=== PATIENT | male | born 1950 | race Caucasian/White ===

== ENCOUNTER → 2019-09-02 | Outpatient (CLI) | payer OTHER | END | disposition home or self-care (01) | LOC: SHCH 13:49 | PROVIDERS: ATTEND Internal Medicine Cardiovascular Disease | DX: I65.23 Occlusion and stenosis of bilateral carotid arteries (principal) | CPT/HCPCS: 93880 ==

== ENCOUNTER 2021-04-04 15:36 | Inpatient (IN) | payer OTHER ==
[~2021-04-04] VITALS: Ht 182.9 cm; Wt 93.0 kg
[~2021-04-04 15:36] MED LIST: CARB1TAB42 PO; CEFD300C3 PO; CHOL2000 PO; CYAN500T9 PO; FLUD0.1T2 PO; MEMA5TAB PO; MIDO5TAB4 PO; RIVA20TA PO; ROPI1TAB13 PO; TRAZ-253 PO
[2021-04-04 15:48] VITALS: BP 114/75
[2021-04-04 15:58] LABS: BASOPHILS % (AUTO) 0.6 % (0.0-5.0); EOSINOPHILS % (AUTO) 0.8 % (0.0-8.0); HEMATOCRIT 40.5 % (42-54); LYMPHOCYTES % (AUTO) 8.7 % (21.0-51.0); MEAN CORPUSCULAR HEMOGLOBIN 30.9 pg (27.0-33.0); MEAN CORPUSCULAR HGB CONC 31.6 g/dL (32.0-36.0); MEAN CORPUSCULAR VOLUME 97.8 fL (79-99); MONOCYTES % (AUTO) 6.5 % (3.0-13.0); NEUTROPHILS % (AUTO) 82.7 % (40.0-77.0); PLATELET COUNT (AUTO) 210 K/uL (130-400); RED BLOOD CELL COUNT(AUTO) 4.14 MIL/uL (4.50-6.20); RED CELL DISTRIBUTION WIDTH 13.2 % (11.0-15.5); WHITE BLOOD COUNT (AUTO) 8.7 K/uL (4.8-10.8)
[2021-04-04 16:09] LABS: INR 1.07 (0.85-1.15); PROTHROMBIN TIME 11.6 SEC (9.6-11.6)
[2021-04-04 16:10] LABS: PARTIAL THROMBOPLASTIN TIME 27.2 SEC (26.3-35.5)
[2021-04-04 16:15] LABS: CARBON DIOXIDE 31 mmol/L (21-32); CHLORIDE 103 mmol/L (101-111); CREATININE 1.2 mg/dL (0.5-1.5); GLOMERULAR FILTR. RATE CALC 63 mL/min (>60); GLUCOSE,RANDOM 122 mg/dL (70-105); POTASSIUM 3.5 mmol/L (3.5-5.1); SODIUM SERUM 140 mmol/L (136-145); UREA NITROGEN, BLOOD 12 mg/dL (7-18)
[2021-04-04 16:18] LABS: B-TYPE NATRIURETIC PEPTIDE 78 pg/mL (0-100)
[2021-04-04 16:26] LABS: ALANINE AMINOTRANSFERASE 15 U/L (12-78); ALBUMIN 3.3 g/dL (3.5-5.0); ASPARTATE AMINOTRANSFERASE 18 U/L (10-37); BILIRUBIN,TOTAL 0.4 mg/dL (0.2-1.0); CREATINE KINASE, TOTAL 21 U/L (21-232); MYOGLOBIN 38 ng/mL (10-92); TOTAL PROTEIN, SERUM 7.5 g/dL (6.0-8.3); TROPONIN I < 0.04 ng/mL (0.00-0.06)
[2021-04-04 18:56] VITALS: BP 103/68
[2021-04-04] MEDS ORDERED: ONDANSETRON 4MG INJ IV PRN (19:30)
[2021-04-04 20:17] VITALS: BP 161/89
[2021-04-04 20:24] LABS: CHOLESTEROL 158 mg/dL (<200); CREATINE KINASE, TOTAL 19 U/L (21-232); HDL CHOLESTEROL 47 mg/dL (29-71); LDL DIRECT 101 mg/dL (0-99); MYOGLOBIN 38 ng/mL (10-92); THYROID STIMULATING HORMONE 48.22 uIU/mL (0.36-3.74); TRIGLYCERIDES 64 mg/dL (30-200); TROPONIN I < 0.04 ng/mL (0.00-0.06)
[2021-04-04] MEDS: FAMOTIDINE 20MG TAB PO SCH (21:11)
[2021-04-04] MEDS: 0.9%NACL 1000ML 1,000 ML IV SCH (21:33)
[2021-04-04] MEDS: CARBIDOPA/LEVODOPA ER 50-200 1 EACH TABLET.ER PO SCH (21:43)
[2021-04-04 22:10] VITALS: BP 160/89
[2021-04-04 23:27] LABS: APPEARANCE,URINE Clear (CLEAR); BILIRUBIN,URINE Negative (NEGATIVE); COLOR,URINE Yellow (YELLOW); GLUCOSE, URINE (UA) Negative (NEGATIVE); KETONES,URINE Negative (NEGATIVE); LEUKOCYTE ESTERASE ,URINE Negative (NEGATIVE); NITRATE,URINE Negative (NEGATIVE); OCCULT BLOOD,URINE Negative (NEGATIVE); PH,URINE 6.5 (5.0-8.0); PROTEIN,URINE Negative (NEGATIVE); UROBILINOGEN,URINE 0.2 mg/dL (0.2-1.0)
[2021-04-05] VITALS (8 sets, daily range): BP systolic 117–176; BP diastolic 64–99
[2021-04-05 01:26] LABS: CREATINE KINASE, TOTAL 22 U/L (21-232); MYOGLOBIN 44 ng/mL (10-92); TROPONIN I < 0.04 ng/mL (0.00-0.06)
[2021-04-05] MEDS: 0.9%NACL 1000ML 1,000 ML IV SCH (05:30)
[2021-04-05 07:21] LABS: BASOPHILS % (AUTO) 0.8 % (0.0-5.0); EOSINOPHILS % (AUTO) 1.8 % (0.0-8.0); HEMATOCRIT 37.2 % (42-54); LYMPHOCYTES % (AUTO) 16.2 % (21.0-51.0); MEAN CORPUSCULAR HEMOGLOBIN 31.2 pg (27.0-33.0); MEAN CORPUSCULAR HGB CONC 32.8 g/dL (32.0-36.0); MEAN CORPUSCULAR VOLUME 95.1 fL (79-99); MONOCYTES % (AUTO) 6.6 % (3.0-13.0); NEUTROPHILS % (AUTO) 74.1 % (40.0-77.0); PLATELET COUNT (AUTO) 188 K/uL (130-400); RED BLOOD CELL COUNT(AUTO) 3.91 MIL/uL (4.50-6.20); RED CELL DISTRIBUTION WIDTH 13.2 % (11.0-15.5); WHITE BLOOD COUNT (AUTO) 6.2 K/uL (4.8-10.8)
[2021-04-05 07:28] LABS: CREATININE 1.3 mg/dL (0.5-1.5); POTASSIUM 3.4 mmol/L (3.5-5.1)
[2021-04-05 07:42] LABS: CREATINE KINASE, TOTAL 27 U/L (21-232); MYOGLOBIN 60 ng/mL (10-92); TROPONIN I < 0.04 ng/mL (0.00-0.06)
[2021-04-05] MEDS ORDERED: RIVAROXABAN 2.5 MG TABLET PO SCH (09:00)
[2021-04-05] MEDS ORDERED: LEVOTHYROXINE 25 MCG TABLET PO SCH (09:00)
[2021-04-05] MEDS: FAMOTIDINE 20MG TAB PO SCH ×2 (09:33→20:18)
[2021-04-05] MEDS: CARBIDOPA/LEVODOPA ER 50-200 1 EACH TABLET.ER PO SCH ×4 (09:33→20:18)
[2021-04-05] MEDS: RIVAROXABAN 20 MG TABLET PO SCH (09:33)
[2021-04-05] MEDS: HYDRALAZINE 20MG/ML VIAL IV PRN (15:57)
[2021-04-05] MEDS: TRAZODONE HCL 50 MG TAB PO SCH (20:18)
[2021-04-06 03:54] VITALS: BP 111/78
[2021-04-06] MEDS: LEVOTHYROXINE 25 MCG TABLET PO SCH (05:47)
[2021-04-06 07:30] VITALS: BP 152/92
[2021-04-06] MEDS: CARBIDOPA/LEVODOPA ER 50-200 1 EACH TABLET.ER PO SCH ×4 (09:14→20:17)
[2021-04-06] MEDS: RIVAROXABAN 20 MG TABLET PO SCH (09:14)
[2021-04-06] MEDS: FAMOTIDINE 20MG TAB PO SCH ×2 (09:14→20:17)
[2021-04-06 10:07] LABS: MAGNESIUM 1.6 mg/dL (1.80-2.40); POTASSIUM 3.3 mmol/L (3.5-5.1)
[2021-04-06 11:15] VITALS: BP 162/96
[2021-04-06] MEDS: ROPINIROLE HCL 1 MG TABLET PO SCH ×2 (11:51→20:17)
[2021-04-06 15:02] VITALS: BP 127/74
[2021-04-06 20:01] VITALS: BP 152/92
[2021-04-06] MEDS: TRAZODONE HCL 50 MG TAB PO SCH (20:17)
[2021-04-06] MEDS ORDERED: ACETAMINOPHEN 325 MG TAB PO PRN (20:30)
[2021-04-06 23:31] VITALS: BP 153/89
[2021-04-07 03:12] VITALS: BP 155/88
[2021-04-07] MEDS ORDERED: POTASSIUM CHLORIDE 20MEQ/100ML 100 ML IV PRN (05:00)
[2021-04-07] MEDS ORDERED: POTASSIUM CHLORIDE 10% ELIXIR 20 MEQ/15 ML UDCUP PO PRN (05:00)
[2021-04-07 05:43] LABS: BASOPHILS % (AUTO) 0.8 % (0.0-5.0); EOSINOPHILS % (AUTO) 2.5 % (0.0-8.0); LYMPHOCYTES % (AUTO) 23.1 % (21.0-51.0); MEAN CORPUSCULAR HEMOGLOBIN 31.5 pg (27.0-33.0); MEAN CORPUSCULAR HGB CONC 33.1 g/dL (32.0-36.0); MEAN CORPUSCULAR VOLUME 95.2 fL (79-99); MONOCYTES % (AUTO) 8.9 % (3.0-13.0); NEUTROPHILS % (AUTO) 64.2 % (40.0-77.0); PLATELET COUNT (AUTO) 172 K/uL (130-400); RED BLOOD CELL COUNT(AUTO) 3.78 MIL/uL (4.50-6.20); RED CELL DISTRIBUTION WIDTH 13.1 % (11.0-15.5); WHITE BLOOD COUNT (AUTO) 6.4 K/uL (4.8-10.8)
[2021-04-07] MEDS: LEVOTHYROXINE 25 MCG TABLET PO SCH (05:46)
[2021-04-07 05:51] LABS: CREATININE 1.1 mg/dL (0.5-1.5); MAGNESIUM 1.6 mg/dL (1.80-2.40); POTASSIUM 3.4 mmol/L (3.5-5.1)
[2021-04-07] MEDS: MAGNESIUM 2GM PREMIX 50ML 50 ML IV SCH (06:16)
[2021-04-07] MEDS: KCL 20 MEQ ERTAB PO PRN (06:22)
[2021-04-07 08:00] VITALS: BP 156/94
[2021-04-07] MEDS ORDERED: LORAZEPAM 2 MG/ML 1 ML VIAL IVP SCH (08:30)
[2021-04-07] MEDS: CARBIDOPA/LEVODOPA ER 50-200 1 EACH TABLET.ER PO SCH ×4 (09:00→20:39)
[2021-04-07 12:00] VITALS: BP 151/75
[2021-04-07] MEDS: ROPINIROLE HCL 1 MG TABLET PO SCH ×2 (12:13→20:36)
[2021-04-07] MEDS: FAMOTIDINE 20MG TAB PO SCH ×2 (12:13→20:36)
[2021-04-07] MEDS: RIVAROXABAN 20 MG TABLET PO SCH (12:13)
[2021-04-07 16:00] VITALS: BP 142/75
[2021-04-07] MEDS: LUBIPROSTONE 24 MCG CAP PO SCH (17:47)
[2021-04-07 19:00] VITALS: BP 128/80
[2021-04-07] MEDS: TRAZODONE HCL 50 MG TAB PO SCH (20:39)
[2021-04-07 23:00] VITALS: BP 137/83
[2021-04-08 03:00] VITALS: BP 130/70
[2021-04-08 05:57] LABS: CREATININE 1.1 mg/dL (0.5-1.5); MAGNESIUM 1.7 mg/dL (1.80-2.40); POTASSIUM 3.5 mmol/L (3.5-5.1)
[2021-04-08] MEDS: LEVOTHYROXINE 25 MCG TABLET PO SCH (06:01)
[2021-04-08 07:00] VITALS: BP 111/74
[2021-04-08] MEDS: RIVAROXABAN 20 MG TABLET PO SCH (09:27)
[2021-04-08] MEDS: FAMOTIDINE 20MG TAB PO SCH ×2 (09:27→20:19)
[2021-04-08] MEDS: CARBIDOPA/LEVODOPA ER 50-200 1 EACH TABLET.ER PO SCH ×4 (09:27→20:19)
[2021-04-08] MEDS: ROPINIROLE HCL 1 MG TABLET PO SCH ×2 (09:27→20:19)
[2021-04-08] MEDS: LUBIPROSTONE 24 MCG CAP PO SCH ×2 (09:28→17:08)
[2021-04-08 11:00] VITALS: BP 110/67
[2021-04-08 15:00] VITALS: BP 107/60
[2021-04-08] MEDS: MIDODRINE HCL 5 MG TABLET PO SCH (17:10)
[2021-04-08 19:27] VITALS: BP 123/89
[2021-04-08] MEDS ORDERED: HYDROXYZINE 25 MG TABLET PO SCH (21:00)
[2021-04-09] VITALS (7 sets, daily range): BP systolic 126–153; BP diastolic 68–93
[2021-04-09] MEDS: LEVOTHYROXINE 25 MCG TABLET PO SCH (05:52)
[2021-04-09 06:38] LABS: MAGNESIUM 1.8 mg/dL (1.80-2.40); POTASSIUM 3.1 mmol/L (3.5-5.1)
[2021-04-09] MEDS: MIDODRINE HCL 5 MG TABLET PO SCH (08:36)
[2021-04-09] MEDS: FAMOTIDINE 20MG TAB PO SCH ×2 (08:47→21:43)
[2021-04-09] MEDS: CARBIDOPA/LEVODOPA ER 50-200 1 EACH TABLET.ER PO SCH ×4 (08:47→21:43)
[2021-04-09] MEDS: MEMANTINE HCL 5 MG TABLET PO SCH (08:47)
[2021-04-09] MEDS: ROPINIROLE HCL 1 MG TABLET PO SCH ×2 (08:47→21:43)
[2021-04-09] MEDS: LUBIPROSTONE 24 MCG CAP PO SCH ×2 (08:47→17:26)
[2021-04-09] MEDS: RIVAROXABAN 20 MG TABLET PO SCH (08:48)
[2021-04-09] MEDS: KCL 20 MEQ ERTAB PO PRN ×2 (08:48→14:00)
[2021-04-09 10:05] LABS: CREATININE 1.2 mg/dL (0.5-1.5); POTASSIUM 3.6 mmol/L (3.5-5.1)
[2021-04-09] MEDS ORDERED: POLYETHYLENE GLYCOL 3350 17 GM POWD.PACK PO ONE (17:00)
[2021-04-09] MEDS: FLUDROCORTISONE ACETATE 0.1 MG TABLET PO SCH (21:43)
[2021-04-10 03:56] VITALS: BP 133/70
[2021-04-10] MEDS: LEVOTHYROXINE 50 MCG TABLET PO SCH (06:02)
[2021-04-10 07:14] LABS: BASOPHILS % (AUTO) 0.5 % (0.0-5.0); EOSINOPHILS % (AUTO) 2.8 % (0.0-8.0); HEMATOCRIT 37.7 % (42-54); LYMPHOCYTES % (AUTO) 15.5 % (21.0-51.0); MEAN CORPUSCULAR HEMOGLOBIN 31.4 pg (27.0-33.0); MEAN CORPUSCULAR HGB CONC 32.4 g/dL (32.0-36.0); MEAN CORPUSCULAR VOLUME 97.2 fL (79-99); MONOCYTES % (AUTO) 9.1 % (3.0-13.0); NEUTROPHILS % (AUTO) 71.7 % (40.0-77.0); PLATELET COUNT (AUTO) 178 K/uL (130-400); RED BLOOD CELL COUNT(AUTO) 3.88 MIL/uL (4.50-6.20); RED CELL DISTRIBUTION WIDTH 13.4 % (11.0-15.5); WHITE BLOOD COUNT (AUTO) 7.5 K/uL (4.8-10.8)
[2021-04-10 07:44] VITALS: BP 120/63
[2021-04-10 07:46] LABS: CREATININE 1.1 mg/dL (0.5-1.5); MAGNESIUM 1.9 mg/dL (1.80-2.40); POTASSIUM 3.9 mmol/L (3.5-5.1)
[2021-04-10] MEDS ORDERED: RISPERIDONE 0.5 MG TABLET PO ONE (09:46)
[2021-04-10] MEDS ORDERED: ROPINIROLE HCL 0.25 MG TABLET ONE (09:52)
[2021-04-10] MEDS: MIDODRINE HCL 5 MG TABLET PO SCH (10:00)
[2021-04-10] MEDS: POLYETHYLENE GLYCOL 3350 17 GM POWD.PACK PO SCH (10:07)
[2021-04-10] MEDS: LUBIPROSTONE 24 MCG CAP PO SCH ×2 (10:07→16:57)
[2021-04-10] MEDS: ROPINIROLE HCL 0.25 MG TABLET PO SCH (10:08)
[2021-04-10] MEDS: CARBIDOPA/LEVODOPA ER 50-200 1 EACH TABLET.ER PO SCH ×4 (10:08→20:32)
[2021-04-10] MEDS: RIVAROXABAN 20 MG TABLET PO SCH (10:08)
[2021-04-10] MEDS: FAMOTIDINE 20MG TAB PO SCH ×2 (10:11→20:32)
[2021-04-10] MEDS: MEMANTINE HCL 5 MG TABLET PO SCH (10:11)
[2021-04-10 11:41] VITALS: BP 115/63
[2021-04-10] MEDS ORDERED: ROPI0.257 PO (13:10)
[2021-04-10] MEDS ORDERED: LEVO50TA4 PO (13:10)
[2021-04-10 15:13] VITALS: BP 145/85
[2021-04-10] MEDS: MAGNESIUM 2GM PREMIX 50ML 50 ML IV SCH (18:56)
[2021-04-10 20:00] VITALS: BP 144/86
[2021-04-10] MEDS: FLUDROCORTISONE ACETATE 0.1 MG TABLET PO SCH (20:32)
[2021-04-11] VITALS: BP 140/89
[2021-04-11 04:00] VITALS: BP 165/92
[2021-04-11] MEDS: LUBIPROSTONE 24 MCG CAP PO SCH ×2 (04:51→16:41)
[2021-04-11] MEDS: LEVOTHYROXINE 50 MCG TABLET PO SCH (04:51)
[2021-04-11] MEDS: MAGNESIUM 2GM PREMIX 50ML 50 ML IV SCH (04:51)
[2021-04-11] MEDS: HYDRALAZINE 20MG/ML VIAL IV PRN (05:01)
[2021-04-11 08:17] VITALS: BP 100/64
[2021-04-11] MEDS: MIDODRINE HCL 5 MG TABLET PO SCH (10:00)
[2021-04-11] MEDS: RIVAROXABAN 20 MG TABLET PO SCH (10:11)
[2021-04-11] MEDS: ROPINIROLE HCL 0.25 MG TABLET PO SCH (10:11)
[2021-04-11] MEDS: FAMOTIDINE 20MG TAB PO SCH (10:11)
[2021-04-11] MEDS: CARBIDOPA/LEVODOPA ER 50-200 1 EACH TABLET.ER PO SCH ×3 (10:11→16:41)
[2021-04-11] MEDS: MEMANTINE HCL 5 MG TABLET PO SCH (10:12)
[2021-04-11] MEDS: POLYETHYLENE GLYCOL 3350 17 GM POWD.PACK PO SCH (10:12)
[2021-04-11 11:22] VITALS: BP 119/56
[2021-04-11 16:37] VITALS: BP 149/83
[2021-04-11] MEDS ORDERED: TRAZODONE HCL 50 MG TAB PO SCH (21:00)
== END 2021-04-11 19:15 | DRG 312 ==
LOC: EDH 15:36 → OBSVTOIN 19:02 → EDHIP 19:02 → 4BH 22:33
PROVIDERS: ADMIT Internal Medicine; ATTEND Internal Medicine
DX: R55 Syncope and collapse (principal); G20 Parkinson's disease; I44.7 Left bundle-branch block, unspecified; F02.80 Dementia in other diseases classified elsewhere, unspecified severity, without behavioral disturbance, psychotic disturbance, mood disturbance, and anxiety; I10 Essential (primary) hypertension; E11.9 Type 2 diabetes mellitus without complications; E03.9 Hypothyroidism, unspecified; F39 Unspecified mood [affective] disorder; E78.00 Pure hypercholesterolemia, unspecified; E78.5 Hyperlipidemia, unspecified; F41.9 Anxiety disorder, unspecified; G31.9 Degenerative disease of nervous system, unspecified; I65.29 Occlusion and stenosis of unspecified carotid artery; J44.9 Chronic obstructive pulmonary disease, unspecified; K59.01 Slow transit constipation; R29.6 Repeated falls; Z79.899 Other long term (current) drug therapy; Z79.01 Long term (current) use of anticoagulants; Z86.711 Personal history of pulmonary embolism
CPT/HCPCS: 36415; 70450; 71045; 73521; 80048; 80053; 80061; 81003; 82533; 82550; 83735; 83874; 83880; 84443; 84484; 85025; 85610; 85730; 93005; 93880; 97039; G0378; J0360; J2060; J3475

== ENCOUNTER 2021-04-26 13:03 | Emergency (ER) | payer OTHER ==
[~2021-04-26] VITALS: Ht 182.9 cm; Wt 83.9 kg
[~2021-04-26 13:03] MED LIST changes: -CEFD300C3 PO; +LEVO50TA4 PO; +ROPI0.257 PO; -ROPI1TAB13 PO
[2021-04-26 13:20] VITALS: BP 123/73
[2021-04-26] MEDS ORDERED: LEVO112T4 PO (13:31)
[2021-04-26] MEDS ORDERED: ROPI1TAB13 PO (13:31)
[2021-04-26] MEDS ORDERED: TAMS-1 PO (13:31)
[2021-04-26 13:40] LABS: BASOPHILS % (AUTO) 0.6 % (0.0-5.0); EOSINOPHILS % (AUTO) 0.9 % (0.0-8.0); HEMATOCRIT 38.5 % (42-54); LYMPHOCYTES % (AUTO) 9.7 % (21.0-51.0); MEAN CORPUSCULAR HEMOGLOBIN 31.1 pg (27.0-33.0); MEAN CORPUSCULAR HGB CONC 31.9 g/dL (32.0-36.0); MEAN CORPUSCULAR VOLUME 97.2 fL (79-99); MONOCYTES % (AUTO) 8.8 % (3.0-13.0); NEUTROPHILS % (AUTO) 79.7 % (40.0-77.0); PLATELET COUNT (AUTO) 181 K/uL (130-400); RED BLOOD CELL COUNT(AUTO) 3.96 MIL/uL (4.50-6.20); RED CELL DISTRIBUTION WIDTH 12.8 % (11.0-15.5); WHITE BLOOD COUNT (AUTO) 6.7 K/uL (4.8-10.8)
[2021-04-26 13:49] LABS: CARBON DIOXIDE 31 mmol/L (21-32); CHLORIDE 104 mmol/L (101-111); CREATININE 1.1 mg/dL (0.5-1.5); GLOMERULAR FILTR. RATE CALC 70 mL/min (>60); GLUCOSE,RANDOM 123 mg/dL (70-105); POTASSIUM 3.4 mmol/L (3.5-5.1); SODIUM SERUM 142 mmol/L (136-145); UREA NITROGEN, BLOOD 20 mg/dL (7-18)
[2021-04-26 13:58] VITALS: BP 136/58
[2021-04-26 13:59] VITALS: BP 125/57
[2021-04-26 13:59] LABS: ALANINE AMINOTRANSFERASE 20 U/L (12-78); ALBUMIN 3.1 g/dL (3.5-5.0); ASPARTATE AMINOTRANSFERASE 16 U/L (10-37); BILIRUBIN,TOTAL 0.4 mg/dL (0.2-1.0); CREATINE KINASE, TOTAL 20 U/L (21-232); MYOGLOBIN 45 ng/mL (10-92); TOTAL PROTEIN, SERUM 7.3 g/dL (6.0-8.3); TROPONIN I < 0.04 ng/mL (0.00-0.06)
[2021-04-26 14:01] VITALS: BP 111/57
[2021-04-26 14:58] VITALS: BP 136/71
[2021-04-26 16:04] LABS: APPEARANCE,URINE Cloudy (CLEAR); BILIRUBIN,URINE Negative (NEGATIVE); COLOR,URINE Yellow (YELLOW); GLUCOSE, URINE (UA) Negative (NEGATIVE); KETONES,URINE Negative (NEGATIVE); LEUKOCYTE ESTERASE ,URINE Large (NEGATIVE); NITRATE,URINE Negative (NEGATIVE); OCCULT BLOOD,URINE Negative (NEGATIVE); PROTEIN,URINE POS 1+ mg/dL (NEGATIVE)
[2021-04-26 16:24] LABS: BACTERIA,URINE Many /HPF (None Seen); MUCUS,URINE Few LPF (None Seen); RBC,URINE 0-1 /HPF (0-1); SQUAMOUS EPITHELIAL CELL,UR 0-2 /HPF (0-2); WBC,URINE 26-50 /HPF (0-1)
[2021-04-26] MEDS ORDERED: MECL-226 PO (16:42)
[2021-04-26] MEDS ORDERED: CEPH500B PO (16:42)
[2021-04-26] MEDS ORDERED: CEFTRIAXONE 1G VIAL IVP ONE (17:00)
[2021-04-26 18:05] VITALS: BP 132/85
== END 2021-04-26 18:08 | disposition home or self-care (01) ==
LOC: EDH 13:03
DX: N39.0 Urinary tract infection, site not specified (principal); G20 Parkinson's disease; R42 Dizziness and giddiness; F02.80 Dementia in other diseases classified elsewhere, unspecified severity, without behavioral disturbance, psychotic disturbance, mood disturbance, and anxiety; E03.9 Hypothyroidism, unspecified; Z79.899 Other long term (current) drug therapy
CPT/HCPCS: 36415; 70450; 71045; 80053; 81001; 82550; 83874; 84484 ×2; 85025; 87077; 87088; 87186; 87426; 93005 ×3; 96374; 99285; J0696

== ENCOUNTER 2021-05-15 16:49 | Observation (INO) | payer OTHER ==
[~2021-05-15] VITALS: Ht 172.7 cm; Wt 81.9 kg
[~2021-05-15 16:49] MED LIST changes: +CEPH500B PO; -CHOL2000 PO; +LEVO112T4 PO; -LEVO50TA4 PO; +MECL-226 PO; -ROPI0.257 PO; +ROPI1TAB13 PO; +TAMS-1 PO; -TRAZ-253 PO
[2021-05-15 21:02] VITALS: BP 176/97
[2021-05-15 21:06] LABS: BASOPHILS % (AUTO) 0.5 % (0.0-5.0); EOSINOPHILS % (AUTO) 1.1 % (0.0-8.0); HEMATOCRIT 38.5 % (42-54); LYMPHOCYTES % (AUTO) 11.4 % (21.0-51.0); MEAN CORPUSCULAR HEMOGLOBIN 31.4 pg (27.0-33.0); MEAN CORPUSCULAR HGB CONC 33.2 g/dL (32.0-36.0); MEAN CORPUSCULAR VOLUME 94.6 fL (79-99); MONOCYTES % (AUTO) 7.1 % (3.0-13.0); NEUTROPHILS % (AUTO) 79.5 % (40.0-77.0); PLATELET COUNT (AUTO) 174 K/uL (130-400); RED BLOOD CELL COUNT(AUTO) 4.07 MIL/uL (4.50-6.20); RED CELL DISTRIBUTION WIDTH 13.2 % (11.0-15.5); WHITE BLOOD COUNT (AUTO) 7.6 K/uL (4.8-10.8)
[2021-05-15 21:09] LABS: APPEARANCE,URINE Clear (CLEAR); BILIRUBIN,URINE Negative (NEGATIVE); COLOR,URINE Yellow (YELLOW); GLUCOSE, URINE (UA) Negative (NEGATIVE); KETONES,URINE Negative (NEGATIVE); LEUKOCYTE ESTERASE ,URINE Trace (NEGATIVE); NITRATE,URINE Negative (NEGATIVE); OCCULT BLOOD,URINE Negative (NEGATIVE); PH,URINE 6.5 (5.0-8.0); PROTEIN,URINE Negative (NEGATIVE); UROBILINOGEN,URINE 0.2 mg/dL (0.2-1.0)
[2021-05-15 21:18] LABS: INR 1.02 (0.85-1.15); POTASSIUM 3.2 mmol/L (3.5-5.1); PROTHROMBIN TIME 11.1 SEC (9.6-11.6)
[2021-05-15 21:19] LABS: PARTIAL THROMBOPLASTIN TIME 26.8 SEC (26.3-35.5)
[2021-05-15 21:23] LABS: B-TYPE NATRIURETIC PEPTIDE 101 pg/mL (0-100); BACTERIA,URINE Few /HPF (None Seen); MUCUS,URINE Few LPF (None Seen); RBC,URINE 0-1 /HPF (0-1); SQUAMOUS EPITHELIAL CELL,UR Few /HPF (0-2)
[2021-05-15 21:24] LABS: ALBUMIN 3.3 g/dL (3.5-5.0); BILIRUBIN,TOTAL 0.6 mg/dL (0.2-1.0); TOTAL PROTEIN, SERUM 7.8 g/dL (6.0-8.3)
[2021-05-15 23:51] VITALS: BP 152/86
[2021-05-16] VITALS (9 sets, daily range): BP systolic 129–170; BP diastolic 73–87
[2021-05-16] MEDS ORDERED: POTASSIUM BICARB/CIT AC 25 MEQ TABLET.EFF PO ONE (02:00)
[2021-05-16] MEDS ORDERED: ACETAMINOPHEN 325 MG TAB PO PRN ×2 (03:00)
[2021-05-16] MEDS ORDERED: LACTULOSE 20 GM/30 ML UDCUP PO PRN (03:00)
[2021-05-16] MEDS ORDERED: ONDANSETRON 4MG INJ IV PRN (03:00)
[2021-05-16] MEDS: PANTOPRAZOLE 40 MG TAB DR PO SCH (10:12)
[2021-05-16] MEDS: MECLIZINE HCL 12.5 MG TABLET PO SCH ×2 (14:00→20:19)
[2021-05-16] MEDS ORDERED: FLUD0.1T2 PO (14:06)
[2021-05-16] MEDS ORDERED: CHOL2000 PO (14:06)
[2021-05-16] MEDS: CARBIDOPA/LEVODOPA ER 50-200 1 EACH TABLET.ER PO SCH ×2 (18:15→20:19)
[2021-05-16 18:16] LABS: CREATININE 0.9 mg/dL (0.5-1.5)
[2021-05-16 18:20] LABS: POTASSIUM 2.9 mmol/L (3.5-5.1)
[2021-05-16] MEDS: MIDODRINE HCL 5 MG TABLET PO SCH (20:15)
[2021-05-16] MEDS: ROPINIROLE HCL 1 MG TABLET PO SCH (20:19)
[2021-05-16] MEDS ORDERED: KCL 20 MEQ ERTAB PO PRN ×2 (22:00)
[2021-05-16] MEDS ORDERED: LIDOCAINE HCL-MPF 1% 2ML VIAL IV PRN ×2 (22:00)
[2021-05-16] MEDS ORDERED: POTASSIUM CHLORIDE 10% ELIXIR 20 MEQ/15 ML UDCUP PO PRN ×2 (22:00)
[2021-05-16] MEDS ORDERED: POTASSIUM CHLORIDE 10MEQ/100ML 100 ML IV PRN (22:00)
[2021-05-16] MEDS ORDERED: POTASSIUM CHLORIDE 20MEQ/100ML 100 ML IV PRN (22:00)
[2021-05-17] VITALS (7 sets, daily range): BP systolic 101–157; BP diastolic 58–104
[2021-05-17] MEDS: LEVOTHYROXINE 112 MCG TABLET PO SCH (06:20)
[2021-05-17 06:35] LABS: BASOPHILS % (AUTO) 0.8 % (0.0-5.0); EOSINOPHILS % (AUTO) 2.5 % (0.0-8.0); HEMATOCRIT 35.3 % (42-54); LYMPHOCYTES % (AUTO) 19.5 % (21.0-51.0); MEAN CORPUSCULAR HEMOGLOBIN 31.2 pg (27.0-33.0); MEAN CORPUSCULAR HGB CONC 32.6 g/dL (32.0-36.0); MEAN CORPUSCULAR VOLUME 95.7 fL (79-99); MONOCYTES % (AUTO) 11.2 % (3.0-13.0); NEUTROPHILS % (AUTO) 65.7 % (40.0-77.0); PLATELET COUNT (AUTO) 132 K/uL (130-400); RED BLOOD CELL COUNT(AUTO) 3.69 MIL/uL (4.50-6.20); WHITE BLOOD COUNT (AUTO) 6.5 K/uL (4.8-10.8)
[2021-05-17 06:50] LABS: CREATININE 0.7 mg/dL (0.5-1.5); POTASSIUM 4.1 mmol/L (3.5-5.1)
[2021-05-17] MEDS: TAMSULOSIN HCL 0.4 MG CAP.ER.24H PO SCH (09:00)
[2021-05-17] MEDS: PANTOPRAZOLE 40 MG TAB DR PO SCH (09:00)
[2021-05-17] MEDS: ROPINIROLE HCL 1 MG TABLET PO SCH ×2 (09:00→19:58)
[2021-05-17] MEDS: MEMANTINE HCL 5 MG TABLET PO SCH (09:00)
[2021-05-17] MEDS: MIDODRINE HCL 5 MG TABLET PO SCH ×3 (09:00→20:04)
[2021-05-17] MEDS: RIVAROXABAN 20 MG TABLET PO SCH (09:00)
[2021-05-17] MEDS: CARBIDOPA/LEVODOPA ER 50-200 1 EACH TABLET.ER PO SCH ×4 (09:00→21:00)
[2021-05-17] MEDS: CYANOCOBALAMIN (VITAMIN B-12) 1,000 MCG TABLET PO SCH (09:00)
[2021-05-17] MEDS: MECLIZINE HCL 12.5 MG TABLET PO SCH ×3 (09:00→19:59)
[2021-05-18 04:32] VITALS: BP 107/62
[2021-05-18] MEDS: LEVOTHYROXINE 112 MCG TABLET PO SCH (05:53)
[2021-05-18 06:38] LABS: BASOPHILS % (AUTO) 0.8 % (0.0-5.0); EOSINOPHILS % (AUTO) 2.4 % (0.0-8.0); LYMPHOCYTES % (AUTO) 19.7 % (21.0-51.0); MEAN CORPUSCULAR HEMOGLOBIN 30.9 pg (27.0-33.0); MEAN CORPUSCULAR HGB CONC 31.8 g/dL (32.0-36.0); MEAN CORPUSCULAR VOLUME 97.4 fL (79-99); MONOCYTES % (AUTO) 11.8 % (3.0-13.0); NEUTROPHILS % (AUTO) 64.6 % (40.0-77.0); PLATELET COUNT (AUTO) 140 K/uL (130-400); RED BLOOD CELL COUNT(AUTO) 3.49 MIL/uL (4.50-6.20); RED CELL DISTRIBUTION WIDTH 13.3 % (11.0-15.5); WHITE BLOOD COUNT (AUTO) 7.1 K/uL (4.8-10.8)
[2021-05-18 07:39] LABS: ALBUMIN 2.8 g/dL (3.5-5.0); ASPARTATE AMINOTRANSFERASE 15 U/L (10-37); BILIRUBIN,TOTAL 0.6 mg/dL (0.2-1.0); CARBON DIOXIDE 30 mmol/L (21-32); CHLORIDE 108 mmol/L (101-111); CREATININE 1.2 mg/dL (0.5-1.5); GLOMERULAR FILTR. RATE CALC 63 mL/min (>60); GLUCOSE,RANDOM 107 mg/dL (70-105); POTASSIUM 3.1 mmol/L (3.5-5.1); SODIUM SERUM 146 mmol/L (136-145); TOTAL PROTEIN, SERUM 6.4 g/dL (6.0-8.3); UREA NITROGEN, BLOOD 19 mg/dL (7-18)
[2021-05-18 08:00] VITALS: BP 127/87
[2021-05-18 08:43] LABS: ALANINE AMINOTRANSFERASE < 6 U/L (12-78)
[2021-05-18] MEDS: MEMANTINE HCL 5 MG TABLET PO SCH (09:12)
[2021-05-18] MEDS: CYANOCOBALAMIN (VITAMIN B-12) 1,000 MCG TABLET PO SCH (09:12)
[2021-05-18] MEDS: PANTOPRAZOLE 40 MG TAB DR PO SCH (09:12)
[2021-05-18] MEDS: ROPINIROLE HCL 1 MG TABLET PO SCH (09:12)
[2021-05-18] MEDS: MIDODRINE HCL 5 MG TABLET PO SCH (09:13)
[2021-05-18] MEDS: TAMSULOSIN HCL 0.4 MG CAP.ER.24H PO SCH (09:13)
[2021-05-18] MEDS: RIVAROXABAN 20 MG TABLET PO SCH (09:13)
[2021-05-18] MEDS: MECLIZINE HCL 12.5 MG TABLET PO SCH ×2 (10:10→13:37)
[2021-05-18] MEDS: CARBIDOPA/LEVODOPA ER 50-200 1 EACH TABLET.ER PO SCH ×2 (10:10→13:37)
[2021-05-18 12:00] VITALS: BP 87/45
== END 2021-05-18 17:00 | disposition hospice, home (50) ==
LOC: EDH 16:49 → EDHIP 05-16 02:50 → 3BH 05-17 16:44 → 3CH 05-17 18:50
PROVIDERS: ADMIT Internal Medicine; ATTEND Internal Medicine
DX: R55 Syncope and collapse (principal); E87.6 Hypokalemia; G20 Parkinson's disease; I95.9 Hypotension, unspecified; I10 Essential (primary) hypertension; E05.90 Thyrotoxicosis, unspecified without thyrotoxic crisis or storm; E78.5 Hyperlipidemia, unspecified; F02.80 Dementia in other diseases classified elsewhere, unspecified severity, without behavioral disturbance, psychotic disturbance, mood disturbance, and anxiety; E03.9 Hypothyroidism, unspecified; Z79.01 Long term (current) use of anticoagulants; Z86.711 Personal history of pulmonary embolism; Z86.718 Personal history of other venous thrombosis and embolism
CPT/HCPCS: 36415 ×4; 71045; 80048 ×2; 80053 ×2; 81001; 82550; 82948; 83735; 83880; 84443; 84484; 85025 ×3; 85610; 85730; 93005; 96365; 96366; 96375; 97039; 97161; 97530; 99285; G0378 ×61; G8981; G8982; G8983; J3480; J3490